=== PATIENT | female | born 1995 | race Caucasian/White ===

== ENCOUNTER 2020-07-23 15:23 | Emergency (ER) | payer OTHER ==
[2020-07-23 15:31] VITALS: BP 130/96
--- NOTE | 2020-07-23 15:48 | ER Document Report ---
ED General - General Chief Complaint: Ear Pain Stated Complaint: EAR PAIN Notes: Patient is a 24-year-old white female with no significant reported past medical history presents the emergency department the chief complaint of left ear pain and drainage. She states about 2 weeks ago she started having some pain in the left maxillary sinus area. She states the pain was followed by a muffled hearing sensation in the left ear with some soreness and drainage from the left ear that she reports is being clear/yellow and brown. She used a Q-tip to try to extract some of the purulence and states it was painful. She denies any drainage from the nose or postnasal. Denies any sore throat or fever. No cough or chest pain or shortness of breath. She does admit to having wisdom teeth that need extraction with denies any dental problems. - Related Data Allergies/Adverse Reactions: No Known Allergies Allergy (Verified 07/23/20 15:36) Past Medical History - Social History Smoking Status: Never Smoker Frequency of alcohol use: None Drug Abuse: None Family History: Reviewed & Not Pertinent Review of Systems - Review of Systems Constitutional: denies: Fever EENT: Sinus pressure Cardiovascular: denies: Chest pain Respiratory: denies: Short of breath Gastrointestinal: denies: Abdominal pain Genitourinary: denies: Pain Female Genitourinary: denies: Vaginal bleeding Musculoskeletal: denies: Neck pain Skin: denies: Change in color Hematologic/Lymphatic: denies: Easy bruising Neurological/Psychological: denies: Headaches Physical Exam - Vital signs Vitals: Temp Pulse Resp BP Pulse Ox 99.0 F 87 18 130/96 H 100 07/23/20 15:29 07/23/20 15:29 07/23/20 15:29 07/23/20 15:29 07/23/20 15:29 - General General appearance: Appears well, Alert In distress: None - HEENT Head: Normocephalic, Atraumatic Eyes: Normal Conjunctiva: Normal Extraocular movements intact: Yes Eyelashes: Normal Pupils: PERRL Ears: Other - Tenderness with movement of the left auricle External canal: Other - Edematous left EAC with scant yellow purulence Tympanic membrane: Other - TMs are pearly pastor bilaterally. The left TM is slightly obscured by the left canal edema and purulence. No evidence of perforation of the left TM. Sinus: No: Tenderness Nasal: Other - Bilateral nasal turbinate edema, right worse than left. Patent nares Mouth/Lips: Normal Mucous membranes: Normal Pharynx: Normal. No: Exudate, Post nasal drainage Neck: Normal, Supple - Respiratory Respiratory status: No respiratory distress Chest status: Nontender Breath sounds: Normal Chest palpation: Normal - Cardiovascular Rhythm: Regular Heart sounds: Normal auscultation - Neurological Neuro grossly intact: Yes Cognition: Normal Orientation: AAOx4 - Psychological Associated symptoms: Normal affect, Normal mood - Skin Skin Temperature: Warm Skin Moisture: Dry Skin Color: Normal Course - Re-evaluation Re-evalutation: 07/23/20 15:49 History and physical consistent with a left otitis externa. No evidence of TM perforation on limited examination. Patient was started on ofloxacin and referred to ENT for follow-up evaluation. Advise she return here or any ER immediately with any new, persistent or worsening symptoms. She verbalized understood and agreed. - Vital Signs Vital signs: Temp Pulse Resp BP Pulse Ox 99.0 F 87 18 130/96 H 100 07/23/20 15:29 07/23/20 15:29 07/23/20 15:29 07/23/20 15:29 07/23/20 15:29 Discharge - Discharge Clinical Impression: Otitis externa Qualifiers: Otitis externa type: unspecified type Chronicity: acute Laterality: left Qualified Code(s): H60.502 - Unspecified acute noninfective otitis externa, left ear Condition: Stable Disposition: HOME, SELF-CARE Instructions: Otitis Externa ([facility]) Additional Instructions: Follow-up with your regular doctor in 2 to 3 days for reevaluation. Return here or any ER immediately with any new, persistent or worsening symptoms. Prescriptions: Ofloxacin 5 ml OT ASDIR #1 bottle Referrals: VESNA PACK DO [ASSOCIATE] - Follow up as needed
== END 2020-07-23 15:47 | disposition home or self-care (01) ==
LOC: ER 15:23
DX: H60.502 Unspecified acute noninfective otitis externa, left ear (principal); H92.02 Otalgia, left ear; J34.89 Other specified disorders of nose and nasal sinuses
CPT/HCPCS: 99283